=== PATIENT | male | born 1955 | race Caucasian/White ===

== ENCOUNTER 2021-03-21 18:11 | Emergency (ER) | payer OTHER ==
[2021-03-21 18:38] VITALS: BMI 27.8
[2021-03-21] MEDS ORDERED: CASIRIVIMAB/IMDEVIMAB 10 ML in SODIUM CHLORIDE 100 ML IVPB ONE (19:26)
[2021-03-21] MEDS ORDERED: ACETAMINOPHEN 325 MG TABLET (FP) PO ONE (19:30)
[2021-03-21] MEDS ORDERED: ACETAMINOPHEN 325 MG TABLET (FP) ONE (20:30)
[2021-03-21 21:00] LABS: BASO % 0.1 % (0-2.0); EOS % 0.1 % (0-4.5); HEMATOCRIT 44.4 % (35.4-49); HEMOGLOBIN 15.7 GM/dL (11.7-16.9); LYMPH % 10.1 % (8-40); MCH 32.3 pg (25.7-33.7); MCHC 35.4 g/dl (32.0-35.9); MEAN CELL VOLUME 91.1 fl (80-96); MEAN PLT VOLUME 8.3 fl (7.5-11.1); MONO % 12.1 % (3.8-10.2); NEUT % 77.6 % (42.8-82.8); PLATELET COUNT 117 10^3/uL (134-434); RBC 4.88 M/mm3 (4.00-5.60); RDW 12.9 % (11.9-15.9); WHITE BLOOD COUNT 7.4 K/mm3 (4.0-10.0)
[2021-03-21] MEDS ORDERED: SODIUM CHLORIDE 1,000 ML IV STA (21:05)
[2021-03-21 21:19] LABS: CHLORIDE 103 mmol/L (98-107); SODIUM 137 mmol/L (136-145)
[2021-03-21 21:21] LABS: ALBUMIN 3.7 g/dl (3.4-5.0); ANION GAP 8 MMOL/L (8-16); BLOOD UREA NITROGEN 12.1 mg/dL (7-18); CALCIUM 8.7 mg/dL (8.5-10.1); CO2 27 mmol/L (21-32); GLUCOSE,RANDOM 87 mg/dL (74-106)
[2021-03-21 21:24] LABS: CREATININE 0.9 mg/dL (0.55-1.3); SGPT/ALT 47 U/L (13-61)
[2021-03-21 21:25] LABS: SGOT/AST 44 U/L (15-37)
[2021-03-21 21:26] LABS: BILIRUBIN,TOTAL 3.9 mg/dL (0.2-1); TOT PROT 6.7 g/dl (6.4-8.2)
[2021-03-21 21:27] LABS: ALK PHOS 57 U/L (45-117)
[2021-03-21 22:13] VITALS: BP 110/57; PULSE 78
[2021-03-21 22:21] VITALS: TEMP 100.5
== END 2021-03-21 22:20 | disposition home or self-care (01) ==
LOC: JER 18:11
DX: U07.1 COVID-19 (principal)
CPT/HCPCS: 36415; 71046-TC-FY; 80053; 82550; 82553; 84484; 85025; 99284-25; C9803; M0240; Q0240; U0003; U0005